=== PATIENT | female | born 1995 | race Caucasian/White ===

== ENCOUNTER 2018-03-23 16:57 | Inpatient (IN) | payer OTHER ==
[~2018-03-23] VITALS: Ht 165.1 cm; Wt 71.7 kg
[2018-03-23 21:30] VITALS: BP 124/79
--- NOTE | 2018-03-23 21:30 | NUR ---
LUIS RN NOTES RECEIVED PT'S REPORT FROM AM NURSE. RECEIVED PT FROM [facility] AT 2110. PT IS A/OX4, NO SOB, NO ANY DISTRESS NOTED AND AFEBRILE AT THIS TIME. PT HAS MOUTH BLISTERS AND COMPLAINS OF PAIN 7/10 AT THIS TIME. DURING SHIFT REPORT I WAS INDORSE THAT 1 UNIT OF BLOOD TRANSFUSION, 1 UNIT OF PLATELET,NEUPOGEN WAS GIVEN AT [facility]. I WAS INDORSED THAT 40MEQ POTASSIUM AND 2gr Mag ALSO WAS REPLACED AT [facility] . PT. PLACED ON REVERSE ISOLATION. ALL SAFETY MEASURES ARE IMPLEMENTED, BED IN LOW, LOCKED POSITION, CALL LIGHT IN REACH. WILL CONT. TO MONITOR.
[2018-03-23] MEDS ORDERED: ACETAMINOPHEN 650 MG/20.3 ML UDC NG PRN (23:00)
[2018-03-23] MEDS ORDERED: CEFEPIME 1 GM in IV D5W 50 ML IV SCH (23:00)
[2018-03-23] MEDS ORDERED: VANCOMYCIN 1 GM in IV D5W 250 ML IV SCH (23:00)
[2018-03-23] MEDS ORDERED: CEFEPIME 1 GM VIAL ONE (23:30)
[2018-03-23] MEDS ORDERED: VANCOMYCIN 1 GM VIAL ONE (23:31)
[2018-03-24] MEDS: diphenhydrAMINE HCL 50 MG/ML VIAL IV PRN (00:25)
[2018-03-24] MEDS: IV 1/2NS 1000 ML 1,000 ML IV PRN ×2 (00:55→16:54)
[2018-03-24] MEDS ORDERED: ONDANSETRON HCL/PF 4 MG/2 ML VIAL IVP PRN (01:00)
[2018-03-24] MEDS ORDERED: MAGNESIUM HYDROXIDE 30 ML UDC PO PRN (01:00)
[2018-03-24] MEDS: MORPHINE SULFATE INJ 2 MG/ML DISP.SYRIN IV PRN (01:25)
[2018-03-24 04:00] VITALS: BP 143/78
[2018-03-24 07:06] LABS: ALBUMIN 3.1 g/dL (3.4-5.0); CALCIUM, SERUM 8.7 mg/dL (8.5-10.1); CREATININE 0.6 mg/dL (0.6-1.3); MAGNESIUM 1.6 mg/dL (1.8-2.4); PHOSPHORUS 2.3 mg/dL (2.5-4.9); POTASSIUM 3.6 mmol/L (3.5-5.1); TOTAL PROTEIN, SERUM 7.5 g/dL (6.4-8.2)
--- NOTE | 2018-03-24 07:40 | NUR ---
MS RN NOTES: RECEIVED PT ON BED ASLEEP, WITH NO APPARENT DISTRESS NOTED. NO COMPLAINTS OF PAIN OR DISCOMFORT AT THIS TIME. NO SOB. IV ON RIGHT AC INTACT AND PATENT. REVERSE ISOLATION OBSERVED AND MAINTAINED. SAFETY AND FALL PRECAUTIONS IMPLEMENTED. CALL LIGHT WITHIN REACH. WILL CONTINUE TO MONITOR PT.
[2018-03-24] MEDS: PANTOPRAZOLE 40 MG TABLET.DR PO SCH (07:58)
[2018-03-24 08:00] VITALS: BP 129/78
[2018-03-24] MEDS: VANCOMYCIN 1 GM in IV D5W 250 ML IV SCH ×2 (09:29→16:50)
[2018-03-24] MEDS ORDERED: CEFEPIME 2 GM in IV D5W 100 ML IV SCH (10:00)
[2018-03-24 10:20] LABS: EOSINOPHILS % (AUTO) 0.2 % (0.0-6.0); HEMATOCRIT 24 % (33-45); HEMOGLOBIN 8.5 g/dL (11.5-14.8); LYMPHOCYTES # (AUTO) 0.8 /CMM (0.8-4.8); LYMPHOCYTES % (AUTO) 94.5 % (20.0-44.0); MEAN CORPUSCULAR HEMOGLOBIN 31 PG (26.0-33.0); MEAN CORPUSCULAR HGB CONC 35 g/dl (31.0-36.0); MEAN CORPUSCULAR VOLUME 88 fL (82-100); MONOCYTES % (AUTO) 2.2 % (2.0-12.0); NEUTROPHILS % (AUTO) 2.1 % (43.0-81.0); RDW COEFFICIENT OF VARIATION 14.3 (11.5-15.0); RED BLOOD CELL COUNT(AUTO) 2.74 MIL/uL (4.0-5.2)
[2018-03-24] MEDS ORDERED: MAGNESIUM OXIDE 400 MG TABLET PO ONE (10:30)
[2018-03-24] MEDS: CEFEPIME 2 GM in IV D5W 100 ML IV SCH ×3 (10:39→20:30)
[2018-03-24] MEDS: ACETAMINOPHEN 325 MG TABLET PO PRN (10:46)
[2018-03-24 11:03] LABS: PLATELET COUNT (AUTO) 23 /CMM (150-450); WHITE BLOOD COUNT (AUTO) 0.8 K/uL (4.3-11.0)
[2018-03-24 11:05] LABS: LYMPHOCYTES % (MANUAL) 92 % (16-48); MONOCYTES % (MANUAL) 4 % (0-11.0); NEUTROPHILS % (MANUAL) 4 (42-76)
--- NOTE | 2018-03-24 11:08 | NUR ---
MS RN NOTES: RECEIVED A CALL FROM LAB REGARDING PATIENT'S WBC 0.[id number] GUADALUPE NOTIFIED, STILL AWAITING FOR NEW ORDERS. WILL CONTINUE TO MONITOR PT.
[2018-03-24] MEDS ORDERED: ONDA4TAB5 PO (11:32)
[2018-03-24] MEDS ORDERED: NEUTRA PHOS 1 POWD.PACKET PO ONE (13:00)
--- NOTE | 2018-03-24 14:00 | NUR ---
MS RN NOTES: NO ACUTE DISTRESS NOTED. NO SOB. DENIES PAIN. NO NEW ORDERS AT THIS TIME. FAMILY AT BEDSIDE. ALL DUE MEDS GIVEN ORDERED AND WELL TOLERATED. WILL CONTINUE TO MONITOR PT.
[2018-03-24] MEDS ORDERED: MENTHOL/CETYLPYRD (CEPACOL) 1 LOZ LOZENGE PO PRN (14:30)
[2018-03-24] MEDS: LIDOCAINE VISCOUS 2% UD 15 ML UDC MM SCH ×2 (15:02→20:30)
[2018-03-24] MEDS: NYSTATIN (PYXIS) 500,000 UNIT/5 ML ORAL.SUSP PO SCH ×2 (15:02→20:30)
[2018-03-24] MEDS ORDERED: FEE PK DOSING 1 MIN EA MC ONE (15:04)
[2018-03-24 16:00] VITALS: BP 113/73
--- NOTE | 2018-03-24 18:30 | NUR ---
MS RN NOTES: PATIENT ON BED ALERT AND AWAKE. ABLE TO MAKE NEEDS KNOWN. NO ACUTE DISTRESS NOTED. NO COMPLAINTS OF PAIN OR DISCOMFORT AT THIS TIME. BREATHING EVEN AND UNLABORED WITH NORMAL RESPIRATIONS. IV ON RFA INTACT AND PATENT WITH IVF RUNNING 1/2 NS @ 70ML/HR, INFUSING WELL. CALL LIGHT PLACED WITHIN REACH. SAFETY AND FALL PRECAUTIONS OBSERVED AND MAINTAINED. WILL ENDORSE TO GROUP SOCIAL WORKER FOR CONTINUITY OF CARE.
--- NOTE | 2018-03-24 19:20 | NUR ---
RN M/S NOTE RECEIVED PATIENT AOX3, SPEECH CLEAR, ON NEUTROPENIC PRECAUTIONS, FAMILY AT BEDSIDE, DENIES ANY PAIN, NO VOICED CONCERNS, RAC #18G WITH 1/2NS AT 70 ML/HR, R CHEST PERMA CATH, PATENT, FLUSHING WELL, SITE CDI, SAFETY MAINTAINED AT ALL TIMES, BED IN LOW LOCKED POSITION, CALL LIGHT WITHIN REACH, WILL CONTINUE TO MONITOR FOR ANY CHANGES.
[2018-03-24 20:00] VITALS: BP 143/80
[2018-03-25] MEDS: diphenhydrAMINE HCL 50 MG/ML VIAL IV PRN (00:10)
[2018-03-25] MEDS: MORPHINE SULFATE INJ 2 MG/ML DISP.SYRIN IV PRN (01:28)
[2018-03-25] MEDS: VANCOMYCIN 1 GM in IV D5W 250 ML IV SCH ×3 (01:35→17:44)
[2018-03-25 04:00] VITALS: BP 130/77
[2018-03-25] MEDS: CEFEPIME 2 GM in IV D5W 100 ML IV SCH ×3 (05:04→21:20)
[2018-03-25] MEDS: LIDOCAINE VISCOUS 2% UD 15 ML UDC MM SCH ×3 (05:05→21:20)
[2018-03-25] MEDS: NYSTATIN (PYXIS) 500,000 UNIT/5 ML ORAL.SUSP PO SCH ×3 (05:05→21:20)
[2018-03-25 06:25] LABS: CALCIUM, SERUM 9.2 mg/dL (8.5-10.1); CREATININE 0.6 mg/dL (0.6-1.3); PHOSPHORUS 2.7 mg/dL (2.5-4.9)
[2018-03-25 06:27] LABS: INR 1.02 (0.87-1.13)
[2018-03-25 06:28] LABS: D-DIMER 2.45 mg/L(FEU (0.17-0.50)
[2018-03-25 06:38] LABS: THYROID STIMULATING HORMONE 3.155 uIU/mL (0.358-3.74)
--- NOTE | 2018-03-25 07:20 | NUR ---
MS RN OPENING NOTE RECEIVED PATIENT AOX3, SPEECH CLEAR, ON NEUTROPENIC PRECAUTIONS, FAMILY AT BEDSIDE, DENIES ANY PAIN, RFA #18G WITH 1/2NS AT 70 ML/HR, R CHEST PERMA CATH. SAFETY MAINTAINED BED IN LOW LOCKED POSITION,SRX3 CALL LIGHT WITHIN REACH, WILL CONTINUE TO MONITOR FOR ANY CHANGES.
[2018-03-25 08:00] VITALS: BP_SYST 129; BP_SYST 147; BP_DIAS 77; BP_DIAS 79
[2018-03-25] MEDS: FLUCONAZOLE (100 MG) 100 MG TABLET PO SCH (08:13)
[2018-03-25] MEDS: PANTOPRAZOLE 40 MG TABLET.DR PO SCH (08:13)
--- NOTE | 2018-03-25 10:30 | NUR ---
RN NOTES GOT CALL FROM LAB FOR CRITICAL RESULT FOR PLATELET COUNT.SPOKE TO NICK. MADE AWARE.
[2018-03-25] MEDS ORDERED: POTASSIUM CHLORIDE 20 MEQ TAB.PRT.SR PO SCH (12:30)
[2018-03-25] MEDS: POTASSIUM CHLORIDE 20 MEQ TAB.PRT.SR PO SCH ×3 (12:36→15:07)
[2018-03-25 15:04] LABS: BASOPHILS % (AUTO) 0.3 % (0.0-2.0); HEMATOCRIT 25 % (33-45); HEMOGLOBIN 8.8 g/dL (11.5-14.8); LYMPHOCYTES # (AUTO) 1.1 /CMM (0.8-4.8); MEAN CORPUSCULAR HEMOGLOBIN 31 PG (26.0-33.0); MEAN CORPUSCULAR HGB CONC 36 g/dl (31.0-36.0); MEAN CORPUSCULAR VOLUME 88 fL (82-100); MONOCYTES % (AUTO) 3.5 % (2.0-12.0); NEUTROPHILS # (AUTO) 0.1 /CMM (1.8-8.9); NEUTROPHILS % (AUTO) 9.2 % (43.0-81.0); RDW COEFFICIENT OF VARIATION 14.4 (11.5-15.0); RED BLOOD CELL COUNT(AUTO) 2.81 MIL/uL (4.0-5.2)
[2018-03-25 15:12] LABS: PLATELET COUNT (AUTO) 16 /CMM (150-450); WHITE BLOOD COUNT (AUTO) 1.2 K/uL (4.3-11.0)
[2018-03-25 16:00] VITALS: BP 125/78
[2018-03-25 16:05] LABS: LYMPHOCYTES % (MANUAL) 88 % (16-48); MONOCYTES % (MANUAL) 1 % (0-11.0); NEUTROPHILS % (MANUAL) 11 (42-76)
[2018-03-25] MEDS: IV 1/2NS 1000 ML 1,000 ML IV PRN (17:44)
--- NOTE | 2018-03-25 19:28 | NUR ---
MS RN SHIFT END NOTE PATIENT AOX3, SPEECH CLEAR, ON NEUTROPENIC PRECAUTIONS, FAMILY AT BEDSIDE, DENIES ANY PAIN, RFA #18G WITH 1/2NS AT 70 ML/HR, R CHEST PERMA CATH. MADE AWARE ABOUT ALL THE ABNORMAL LABS .SHE SAID ITS BECAUSE OF THE POST CHEMO.SAFETY MAINTAINED BED IN LOW LOCKED POSITION,SRX3 CALL LIGHT WITHIN REACH.ENDORSED TO PM NURSE FOR ALFREDITO.
[2018-03-25 20:00] VITALS: BP_SYST 140; BP_SYST 141; BP_DIAS 73; BP_DIAS 75
[2018-03-26] VITALS (9 sets, daily range): BP systolic 105–136; BP diastolic 58–81
[2018-03-26] MEDS: VANCOMYCIN 1 GM in IV D5W 250 ML IV SCH ×3 (00:13→17:22)
[2018-03-26] MEDS: diphenhydrAMINE HCL 50 MG/ML VIAL IV PRN (00:26)
[2018-03-26] MEDS: MORPHINE SULFATE INJ 2 MG/ML DISP.SYRIN IV PRN (00:26)
[2018-03-26] MEDS: CEFEPIME 2 GM in IV D5W 100 ML IV SCH ×3 (05:19→21:44)
[2018-03-26] MEDS: NYSTATIN (PYXIS) 500,000 UNIT/5 ML ORAL.SUSP PO SCH ×3 (05:19→21:44)
[2018-03-26] MEDS: LIDOCAINE VISCOUS 2% UD 15 ML UDC MM SCH ×3 (05:19→21:44)
[2018-03-26 07:36] LABS: BASOPHILS % (AUTO) 0.7 % (0.0-2.0); EOSINOPHILS % (AUTO) 0.7 % (0.0-6.0); HEMATOCRIT 22 % (33-45); HEMOGLOBIN 7.9 g/dL (11.5-14.8); LYMPHOCYTES # (AUTO) 0.9 /CMM (0.8-4.8); LYMPHOCYTES % (AUTO) 74.6 % (20.0-44.0); MEAN CORPUSCULAR HEMOGLOBIN 31 PG (26.0-33.0); MEAN CORPUSCULAR HGB CONC 36 g/dl (31.0-36.0); MEAN CORPUSCULAR VOLUME 87 fL (82-100); MONOCYTES # (AUTO) 0.1 /CMM (0.1-1.30); MONOCYTES % (AUTO) 6.8 % (2.0-12.0); NEUTROPHILS # (AUTO) 0.2 /CMM (1.8-8.9); NEUTROPHILS % (AUTO) 17.2 % (43.0-81.0); RDW COEFFICIENT OF VARIATION 13.9 (11.5-15.0); RED BLOOD CELL COUNT(AUTO) 2.53 MIL/uL (4.0-5.2)
--- NOTE | 2018-03-26 07:41 | NUR ---
RN NOTE RECEIVED PATIENT ASLEEP IN BED, ALERT AND ORIENTED X3, SHE IS ABLE TO MAKE THINGS KNOWN AND VERBALIZE NEEDS. BREATHING EVEN AND UNLABORED WITH NO DISTRESS NOTED. ON NEUTROPENIC PRECAUTIONS, FAMILY AT BEDSIDE, DENIES ANY PAIN AT THIS TIME. RIGHT FA IV SITE INTACT AND PATENT WITH ONGOING FLUIDS AT 70 ML/HR, RIGHT CHEST PERMA CATH INTACT. ALL SAFETY MEASURES DONE, BED LOW AND LOCKED POSITION. PLACED CALL LIGHT WITHIN REACH. WILL CONTINUE TO MONITOR.
[2018-03-26 08:03] LABS: WHITE BLOOD COUNT (AUTO) 1.2 K/uL (4.3-11.0)
[2018-03-26 08:04] LABS: PLATELET COUNT (AUTO) 7 /CMM (150-450)
[2018-03-26] MEDS: PANTOPRAZOLE 40 MG TABLET.DR PO SCH (08:08)
[2018-03-26 08:14] LABS: CALCIUM, SERUM 9.2 mg/dL (8.5-10.1); CREATININE 0.6 mg/dL (0.6-1.3); MAGNESIUM 1.4 mg/dL (1.8-2.4); PHOSPHORUS 2.5 mg/dL (2.5-4.9); POTASSIUM 3.4 mmol/L (3.5-5.1)
[2018-03-26] MEDS: FLUCONAZOLE (100 MG) 100 MG TABLET PO SCH (08:39)
[2018-03-26] MEDS ORDERED: MAGNESIUM OXIDE 400 MG TABLET PO ONE (10:00)
[2018-03-26] MEDS ORDERED: POTASSIUM CHLORIDE 20 MEQ TAB.PRT.SR PO SCH (10:00)
[2018-03-26 10:26] LABS: LYMPHOCYTES % (MANUAL) 76 % (16-48); MONOCYTES % (MANUAL) 4 % (0-11.0); NEUTROPHILS % (MANUAL) 20 (42-76)
[2018-03-26] MEDS: Magnesium 1GM/D5W 100ML PREMIX 100 ML IV SCH ×3 (13:02→15:15)
[2018-03-26] MEDS: IV 1/2NS 1000 ML 1,000 ML IV PRN (17:23)
--- NOTE | 2018-03-26 18:00 | NUR ---
RN NOTE SEEN BY DR VAZQUEZ, NEW ORDERS TO TRANSFUSE PLATELETS TO PATIENT. WAITING ON LAB FOR TYPE AND SCREEN ON PATIENT. BLOOD NOT AVAILABLE YET WILL FOLLOW UP
--- NOTE | 2018-03-26 19:40 | NUR ---
RN NOTE PATIENT REMAINED STABLE THROUGHOUT SHIFT. NO ACUTE CHANGES OR DISTRESS NOTED. WILL ENDORSE TO NEXT SHIFT TO FOLLOW UP ON TRANSFUSING PATIENT. CONSENT SIGNED BY PATIENT.
--- NOTE | 2018-03-26 20:00 | NUR ---
RN NOTES RECEIVED PATIENT AWAKE IN BED WITH FAMILY AT BEDSIDE. ALERT AND ORIENTED, VERBALLY ABLE TO COMMUNICATE NEEDS. IN NO APPARENT DISTRESS, BREATHING EVEN AND UNLABORED. ROOM AIR WELL TOLERATED. NO COMPLAINT OF PAIN OF THIS TIME. WILL CONTINUE TO MONITOR.
[2018-03-27] MEDS: diphenhydrAMINE HCL 50 MG/ML VIAL IV PRN (01:01)
[2018-03-27] MEDS: MORPHINE SULFATE INJ 2 MG/ML DISP.SYRIN IV PRN (01:02)
[2018-03-27] MEDS: VANCOMYCIN 1 GM in IV D5W 250 ML IV SCH ×3 (01:03→17:08)
[2018-03-27] MEDS: CEFEPIME 2 GM in IV D5W 100 ML IV SCH ×3 (04:30→20:40)
[2018-03-27] MEDS: LIDOCAINE VISCOUS 2% UD 15 ML UDC MM SCH ×3 (05:00→20:40)
[2018-03-27] MEDS: NYSTATIN (PYXIS) 500,000 UNIT/5 ML ORAL.SUSP PO SCH ×3 (05:00→20:40)
[2018-03-27 06:01] VITALS: BP 135/77
--- NOTE | 2018-03-27 06:24 | NUR ---
RN CLOSING NOTES RESTING COMFORTABLY IN BED WITH DISTRESS NOTED. ROOM AIR WELL TOLERATED. BREATHING EVEN AND UNLABORED. REFUSED 0500 MEDICATION (LIDOCAINE AND NYSTATION), PATIENT SAID IT IS TOO EARLY FOR HER. S/P BLOOD PRODUCT TRANSFUSION, 1 BAG, NO ADVERSE EFFECT NOTED. PATIENT TOLERATED TRANSFUSION WELL. WITH COMPLAINT OF PAIN AT AROUND 2AM, MORPHINE ADMINISTERED WITH RELIEF. VITAL SIGNS WNL. KEPT CLEAN AND DRY. WILL ENDORSE TO AM SHIFT FOR CONTINUITY OF CARE.
[2018-03-27 08:00] VITALS: BP 146/84
[2018-03-27] MEDS: FLUCONAZOLE (100 MG) 100 MG TABLET PO SCH (08:57)
[2018-03-27] MEDS: PANTOPRAZOLE 40 MG TABLET.DR PO SCH (08:57)
[2018-03-27 10:16] LABS: CALCIUM, SERUM 8.8 mg/dL (8.5-10.1); CREATININE 0.5 mg/dL (0.6-1.3); POTASSIUM 3.3 mmol/L (3.5-5.1)
[2018-03-27 11:36] LABS: HEMATOCRIT 22 % (33-45); HEMOGLOBIN 7.8 g/dL (11.5-14.8); LYMPHOCYTES % (AUTO) 62.4 % (20.0-44.0); MEAN CORPUSCULAR HEMOGLOBIN 31 PG (26.0-33.0); MEAN CORPUSCULAR HGB CONC 36 g/dl (31.0-36.0); MEAN CORPUSCULAR VOLUME 86 fL (82-100); MONOCYTES % (AUTO) 6.2 % (2.0-12.0); NEUTROPHILS % (AUTO) 31.1 % (43.0-81.0); PLATELET COUNT (AUTO) 28 /CMM (150-450); RDW COEFFICIENT OF VARIATION 14.7 (11.5-15.0); RED BLOOD CELL COUNT(AUTO) 2.52 MIL/uL (4.0-5.2); WHITE BLOOD COUNT (AUTO) 1.4 K/uL (4.3-11.0)
[2018-03-27 11:37] LABS: BASOPHILS % (AUTO) 0.1 % (0.0-2.0); EOSINOPHILS % (AUTO) 0.2 % (0.0-6.0)
[2018-03-27 12:00] LABS: NEUTROPHILS % (MANUAL) 30 (42-76)
[2018-03-27 12:01] LABS: LYMPHOCYTES % (MANUAL) 64 % (16-48); MONOCYTES % (MANUAL) 6 % (0-11.0)
[2018-03-27] MEDS: IV 1/2NS 1000 ML 1,000 ML IV PRN (15:01)
[2018-03-27 16:00] VITALS: BP 124/75
--- NOTE | 2018-03-27 18:53 | NUR ---
RN NOTE: PATIENT REMAINS ALERT AWAKE ORIENTED. DENIES PAIN & DISCOMFORT. VITAL SIGNS WNL. SAFETY MEASURES OBSERVED. CONTINUE TO MONITOR LABS. IV FLUIDS RUNNING WELL ORDERED. NO FALL/INJURY NOTED. CALL LIGHT WITHIN REACH. WILL ENDORSE TO PM SHIFT FOR CONTINUITY OF CARE.
[2018-03-27 20:00] VITALS: BP 133/72
[2018-03-28] MEDS: diphenhydrAMINE HCL 50 MG/ML VIAL IV PRN (00:10)
[2018-03-28] MEDS: VANCOMYCIN 1 GM in IV D5W 250 ML IV SCH ×3 (00:10→17:54)
[2018-03-28] MEDS: MORPHINE SULFATE INJ 2 MG/ML DISP.SYRIN IV PRN (00:11)
[2018-03-28 04:00] VITALS: BP 108/62
[2018-03-28] MEDS: CEFEPIME 2 GM in IV D5W 100 ML IV SCH ×3 (04:32→20:08)
[2018-03-28] MEDS: LIDOCAINE VISCOUS 2% UD 15 ML UDC MM SCH ×3 (04:33→20:08)
[2018-03-28] MEDS: NYSTATIN (PYXIS) 500,000 UNIT/5 ML ORAL.SUSP PO SCH ×3 (04:33→20:08)
--- NOTE | 2018-03-28 06:34 | NUR ---
MS RN NOTE PT REMAINED STABLE DURING SHIFT. NO ACUTE DISTRESS NOTED. MOTHER AT BEDSIDE. ALL NEEDS ATTENDED TO PROMPTLY. CALL LIGHT WITHIN REACH. NEUTROPENIC PRECAUTIONS OBSERVED. WILL ENDORSE TO NEXT SHIFT FOR CONTINUITY OF CARE.
[2018-03-28 08:00] VITALS: BP 119/66
[2018-03-28 08:01] LABS: EOSINOPHILS % (AUTO) 0.2 % (0.0-6.0); HEMATOCRIT 23 % (33-45); HEMOGLOBIN 8.3 g/dL (11.5-14.8); LYMPHOCYTES # (AUTO) 1.1 /CMM (0.8-4.8); LYMPHOCYTES % (AUTO) 46.1 % (20.0-44.0); MEAN CORPUSCULAR HEMOGLOBIN 31 PG (26.0-33.0); MEAN CORPUSCULAR HGB CONC 36 g/dl (31.0-36.0); MEAN CORPUSCULAR VOLUME 87 fL (82-100); MONOCYTES # (AUTO) 0.2 /CMM (0.1-1.30); NEUTROPHILS # (AUTO) 0.9 /CMM (1.8-8.9); NEUTROPHILS % (AUTO) 41.7 % (43.0-81.0); RDW COEFFICIENT OF VARIATION 13.7 (11.5-15.0); RED BLOOD CELL COUNT(AUTO) 2.66 MIL/uL (4.0-5.2); WHITE BLOOD COUNT (AUTO) 2.2 K/uL (4.3-11.0)
[2018-03-28 08:09] LABS: PLATELET COUNT (AUTO) 20 /CMM (150-450)
[2018-03-28 08:10] LABS: CALCIUM, SERUM 9.4 mg/dL (8.5-10.1); CREATININE 0.6 mg/dL (0.6-1.3); MAGNESIUM 1.3 mg/dL (1.8-2.4); PHOSPHORUS 3.6 mg/dL (2.5-4.9); POTASSIUM 3.7 mmol/L (3.5-5.1)
[2018-03-28] MEDS: PANTOPRAZOLE 40 MG TABLET.DR PO SCH (08:46)
[2018-03-28] MEDS: FLUCONAZOLE (100 MG) 100 MG TABLET PO SCH (08:46)
[2018-03-28] MEDS: Magnesium 1GM/D5W 100ML PREMIX 100 ML IV SCH ×4 (11:04→16:39)
[2018-03-28 11:54] LABS: BAND % (MANUAL) 4 % (0.0-5.0); LYMPHOCYTES % (MANUAL) 30 % (16-48); MONOCYTES % (MANUAL) 1 % (0-11.0); NEUTROPHILS % (MANUAL) 65 (42-76)
[2018-03-28] MEDS ORDERED: Magnesium 1GM/D5W 100ML PREMIX 100 ML IV ONE (14:00)
[2018-03-28 16:00] VITALS: BP 112/69
--- NOTE | 2018-03-28 19:22 | NUR ---
MS RN SHIFT END NOTE PATIENT AXOX4 .DENIES ANY PAIN, INSERTED IV ON RW.RW #22G WITH 1/2NS AT 70 ML/HR, R CHEST PERMA CATH.SEEN BY DIETETIC TECH ERICH WITH NO NEW ORDERS. SAFETY MAINTAINED BED IN LOW LOCKED POSITION,SRX3 CALL LIGHT WITHIN REACH, ENDORSED TO PM NURSE FOR ALFREDITO.
[2018-03-28 20:00] VITALS: BP 112/76
[2018-03-28] MEDS: IV 1/2NS 1000 ML 1,000 ML IV PRN (20:08)
[2018-03-29] MEDS: VANCOMYCIN 1 GM in IV D5W 250 ML IV SCH ×3 (00:04→16:07)
[2018-03-29] MEDS: ACETAMINOPHEN 325 MG TABLET PO PRN (00:09)
[2018-03-29] MEDS: diphenhydrAMINE HCL 50 MG/ML VIAL IV PRN ×2 (00:09→23:19)
[2018-03-29] MEDS: MORPHINE SULFATE INJ 2 MG/ML DISP.SYRIN IV PRN ×2 (00:10→23:19)
[2018-03-29 04:00] VITALS: BP 105/64
[2018-03-29] MEDS: CEFEPIME 2 GM in IV D5W 100 ML IV SCH ×3 (04:46→21:46)
[2018-03-29] MEDS: NYSTATIN (PYXIS) 500,000 UNIT/5 ML ORAL.SUSP PO SCH ×3 (04:46→21:37)
[2018-03-29] MEDS: LIDOCAINE VISCOUS 2% UD 15 ML UDC MM SCH ×3 (04:46→21:37)
[2018-03-29 08:00] VITALS: BP 127/70
[2018-03-29] MEDS: PANTOPRAZOLE 40 MG TABLET.DR PO SCH (08:39)
[2018-03-29] MEDS: FLUCONAZOLE (100 MG) 100 MG TABLET PO SCH (08:41)
[2018-03-29 09:08] LABS: BASOPHILS % (AUTO) 0.6 % (0.0-2.0); EOSINOPHILS % (AUTO) 0.1 % (0.0-6.0); HEMATOCRIT 22 % (33-45); HEMOGLOBIN 7.9 g/dL (11.5-14.8); LYMPHOCYTES # (AUTO) 0.9 /CMM (0.8-4.8); LYMPHOCYTES % (AUTO) 43.1 % (20.0-44.0); MEAN CORPUSCULAR HEMOGLOBIN 31 PG (26.0-33.0); MEAN CORPUSCULAR HGB CONC 35 g/dl (31.0-36.0); MEAN CORPUSCULAR VOLUME 86 fL (82-100); MONOCYTES # (AUTO) 0.2 /CMM (0.1-1.30); MONOCYTES % (AUTO) 10.4 % (2.0-12.0); NEUTROPHILS % (AUTO) 45.8 % (43.0-81.0); RDW COEFFICIENT OF VARIATION 13.8 (11.5-15.0); RED BLOOD CELL COUNT(AUTO) 2.59 MIL/uL (4.0-5.2); WHITE BLOOD COUNT (AUTO) 2.1 K/uL (4.3-11.0)
[2018-03-29 09:21] LABS: PLATELET COUNT (AUTO) 14 /CMM (150-450)
[2018-03-29 09:30] LABS: CALCIUM, SERUM 9.2 mg/dL (8.5-10.1); CREATININE 0.7 mg/dL (0.6-1.3); POTASSIUM 3.7 mmol/L (3.5-5.1)
[2018-03-29 10:55] LABS: BAND % (MANUAL) 2 % (0.0-5.0); EOSINOPHILS % (MANUAL) 1 % (0-4); LYMPHOCYTES % (MANUAL) 59 % (16-48); MONOCYTES % (MANUAL) 2 % (0-11.0); NEUTROPHILS % (MANUAL) 36 (42-76)
[2018-03-29] MEDS: Magnesium 1GM/D5W 100ML PREMIX 100 ML IV SCH ×2 (11:27→12:59)
[2018-03-29 16:00] VITALS: BP 107/59
[2018-03-29 20:00] VITALS: BP 111/71
[2018-03-29] MEDS: IV 1/2NS 1000 ML 1,000 ML IV PRN (23:25)
[2018-03-30] VITALS (15 sets, daily range): BP systolic 101–130; BP diastolic 47–77
[2018-03-30] MEDS: VANCOMYCIN 1 GM in IV D5W 250 ML IV SCH ×3 (01:25→17:11)
[2018-03-30] MEDS: LIDOCAINE VISCOUS 2% UD 15 ML UDC MM SCH ×3 (05:03→20:32)
[2018-03-30] MEDS: NYSTATIN (PYXIS) 500,000 UNIT/5 ML ORAL.SUSP PO SCH ×3 (05:04→20:32)
[2018-03-30] MEDS: CEFEPIME 2 GM in IV D5W 100 ML IV SCH ×3 (05:07→20:32)
--- NOTE | 2018-03-30 07:30 | NUR ---
RN M/S INITIAL NOTES: RECEIVED PT IN BED, AWAKE. A&O X4. ON ROOM AIR SATURATING 100%. IV TO R HAND IN PLACE, CONNECTED TO IV FLUIDS ORDERED. REVERSE ISOLATION PRECAUTIONS IN PLACE. PT C/O MILD HEADACHE BUT DENYING PAIN MEDS AT THIS TIME. WILL CONTINUE TO MONITOR. BED IN LOW LOCKED POSITION, CALL LIGHT WITHIN REACH. PLAN OF CARE DISCUSSED WITH PT. WILL CONTINUE TO MONITOR.
[2018-03-30] MEDS: PANTOPRAZOLE 40 MG TABLET.DR PO SCH (07:41)
[2018-03-30] MEDS: ACETAMINOPHEN 325 MG TABLET PO PRN ×3 (08:16→21:18)
[2018-03-30] MEDS: FLUCONAZOLE (100 MG) 100 MG TABLET PO SCH (08:16)
[2018-03-30 09:04] LABS: CALCIUM, SERUM 8.9 mg/dL (8.5-10.1); CREATININE 0.7 mg/dL (0.6-1.3); MAGNESIUM 1.6 mg/dL (1.8-2.4); POTASSIUM 3.8 mmol/L (3.5-5.1)
[2018-03-30 09:37] LABS: EOSINOPHILS % (AUTO) 0.4 % (0.0-6.0); HEMATOCRIT 21 % (33-45); HEMOGLOBIN 7.6 g/dL (11.5-14.8); LYMPHOCYTES # (AUTO) 0.7 /CMM (0.8-4.8); LYMPHOCYTES % (AUTO) 30.1 % (20.0-44.0); MEAN CORPUSCULAR HEMOGLOBIN 30 PG (26.0-33.0); MEAN CORPUSCULAR HGB CONC 36 g/dl (31.0-36.0); MEAN CORPUSCULAR VOLUME 85 fL (82-100); MONOCYTES # (AUTO) 0.2 /CMM (0.1-1.30); MONOCYTES % (AUTO) 8.1 % (2.0-12.0); NEUTROPHILS # (AUTO) 1.3 /CMM (1.8-8.9); NEUTROPHILS % (AUTO) 61.4 % (43.0-81.0); RDW COEFFICIENT OF VARIATION 13.6 (11.5-15.0); RED BLOOD CELL COUNT(AUTO) 2.51 MIL/uL (4.0-5.2); WHITE BLOOD COUNT (AUTO) 2.2 K/uL (4.3-11.0)
[2018-03-30 09:45] LABS: PLATELET COUNT (AUTO) 10 /CMM (150-450)
--- NOTE | 2018-03-30 09:49 | NUR ---
LAB CALLED TO REPORT PLATELET LEVEL OF 10. ERICH GEE ON UNIT AND MADE AWARE.
[2018-03-30] MEDS: MORPHINE SULFATE INJ 2 MG/ML DISP.SYRIN IV PRN (10:57)
[2018-03-30 12:15] LABS: BAND % (MANUAL) 5 % (0.0-5.0); LYMPHOCYTES % (MANUAL) 34 % (16-48); MONOCYTES % (MANUAL) 8 % (0-11.0); NEUTROPHILS % (MANUAL) 53 (42-76)
--- NOTE | 2018-03-30 14:15 | NUR ---
1 UNIT OF PRBC'S BEING TRANSFUSED SINCE 1315. PT NOTED WITH TEMPERATURE 99.4. PT REQUESTING TYLENOL. 650MG GIVEN PO. WILL CONTINUE TO MONITOR
--- NOTE | 2018-03-30 14:30 | NUR ---
PT TEMP 100.0. TYLENOL ALREADY GIVEN. ERICH GEE MADE AWARE. WILL CONTINUE TO MONITOR.
[2018-03-30] MEDS: diphenhydrAMINE HCL 50 MG/ML VIAL IV PRN (18:15)
--- NOTE | 2018-03-30 18:45 | NUR ---
RN M/S END NOTES: PT REMAINS IN BED, AWAKE, A&O X4. DENIES ANY PAIN OR DISCOMFORT AT THIS TIME. BED IN LOW LOCKED POSITION. CALL LIGHT WITHIN REACH. ON ROOM AIR SATURATING WELL. IV FLUIDS RUNNING ORDERED. WILL ENDORSE TO PM SHIFT FOR CONTINUITY OF CARE
--- NOTE | 2018-03-30 20:00 | NUR ---
RECEIVED PATIENT IN BED FAMILY AT THE BEDSIDE. PATIENT IS AAO X 4, ANXIOUS, NEEDING PLATELETS TRANSFUSIONS , VITAL SIGNS ARE STABLE BUT PATIENT HAS A LOW GRADE FEVER 99.0f
--- NOTE | 2018-03-30 20:30 | NUR ---
STARTED PLATELETS TRANSFUSION, CONTINUE TO MONITOR
[2018-03-30] MEDS: IV 1/2NS 1000 ML 1,000 ML IV PRN (20:38)
--- NOTE | 2018-03-30 21:15 | NUR ---
PLATELETS TRANSFUSION IS FINISHED , PATIENT HAS A FEVER 101.F - TYLENOL GIVEN AT THIS TIME CONTINUE TO MONITOR
--- NOTE | 2018-03-30 21:30 | NUR ---
SCHEDULED MEDS ARE GIVEN WELL ANTIBIOTIC, COOLING MEASURES STARTED- ICE PACKS GIVEN TO THE PATIENT. CONTINUE TO MONITOR
--- NOTE | 2018-03-30 23:00 | NUR ---
PATIENT C/O RASH TO BOTH ARMS, STILL HAS A FEVER 102F NOW. DR. SNYDER NOTIFIED POSSIBLE BLOOOD TRANSFUSION REACTION POSSIBLY FROM PR[facility]'S. BLOOD TRANSFUSION REACTION PROTOCOL STARTED. BC, UC AND THE REST OF THE BLOOD AND PLATELETS IS SEND TO THE BLOOD BANK
[2018-03-30] MEDS ORDERED: diphenhydrAMINE HCL 50 MG/ML VIAL IV ONE (23:30)
[2018-03-30] MEDS ORDERED: methylPREDNISolone SOD SUCC 125 MG/2ML VIAL IV ONE (23:30)
--- NOTE | 2018-03-31 | NUR ---
BENADRYL AND SOLU MEDROL IS GIVEN ORDERED
[2018-03-31] MEDS: MORPHINE SULFATE INJ 2 MG/ML DISP.SYRIN IV PRN ×2 (00:02→07:35)
[2018-03-31] MEDS: VANCOMYCIN 1 GM in IV D5W 250 ML IV SCH ×3 (00:03→17:01)
--- NOTE | 2018-03-31 00:13 | NUR ---
PATIENT C/O PAIN- MORPHINE 2MG IS GIVEN . CONTINUE TO MONITOR
[2018-03-31 02:12] LABS: ALBUMIN 3.3 g/dL (3.4-5.0); BILIRUBIN,DIRECT 0.2 mg/dL (0.0-0.2); BILIRUBIN,TOTAL 0.7 mg/dL (0.2-1.0); CALCIUM, SERUM 8.6 mg/dL (8.5-10.1); CREATININE 0.8 mg/dL (0.6-1.3); POTASSIUM 3.3 mmol/L (3.5-5.1); TOTAL PROTEIN, SERUM 7.3 g/dL (6.4-8.2)
[2018-03-31 02:17] LABS: APPEARANCE,URINE CLEAR (CLEAR); BILIRUBIN,URINE NEGATIVE (NEGATIVE); BLOOD, URINE NEGATIVE Ery/uL (NEGATIVE); COLOR,URINE YELLOW (YELLOW); KETONES,URINE NEGATIVE (NEGATIVE); LEUKOCYTE ESTERASE ,URINE NEGATIVE (NEGATIVE); NITRITE, URINE NEGATIVE (NEGATIVE); PROTEIN,URINE NEGATIVE (NEGATIVE); UGLUCOSE NEGATIVE (NEGATIVE); UROBILINOGEN,URINE 0.2 EU/dL (0.2)
[2018-03-31 04:00] VITALS: BP 113/65
[2018-03-31] MEDS: NYSTATIN (PYXIS) 500,000 UNIT/5 ML ORAL.SUSP PO SCH ×3 (04:44→21:11)
[2018-03-31] MEDS: LIDOCAINE VISCOUS 2% UD 15 ML UDC MM SCH ×3 (04:44→21:11)
[2018-03-31] MEDS: CEFEPIME 2 GM in IV D5W 100 ML IV SCH ×2 (04:44→13:06)
--- NOTE | 2018-03-31 07:30 | NUR ---
RN M/S INITIAL NOTES: RECEIVED PT IN BED, AWAKE. A&O X4. ON ROOM AIR SATURATING 97%. PT C/O ITCHING DUE TO RASH FROM TRANSFUSION REACTION. WILL GIVE BENADRYL PRN ORDERED. PT C/O GENERALIZED PAIN, WILL GIVE MORPHINE ORDERED WELL. IV FLUIDS CONNECTED TO R WRIST IV SITE. BED IN LOW LOCKED POSITION, CALL LIGHT WITHIN REACH. PLAN OF CARE DISCUSSED WITH PT AND FAMILY MEMBER AT BEDSIDE. WILL CONTINUE TO MONITOR.
[2018-03-31] MEDS: PANTOPRAZOLE 40 MG TABLET.DR PO SCH (07:35)
[2018-03-31] MEDS: diphenhydrAMINE HCL 50 MG/ML VIAL IV PRN ×2 (07:35→13:40)
[2018-03-31] MEDS: ACETAMINOPHEN 325 MG TABLET PO PRN ×3 (07:35→21:11)
[2018-03-31 08:00] VITALS: BP_SYST 130; BP_DIAS 76; BP_DIAS 80
[2018-03-31] MEDS: FLUCONAZOLE (100 MG) 100 MG TABLET PO SCH (08:56)
[2018-03-31] MEDS ORDERED: POTASSIUM CHLORIDE 20 MEQ TAB.PRT.SR PO SCH (09:30)
[2018-03-31 16:00] VITALS: BP 129/72
[2018-03-31] MEDS ORDERED: DEXAMETHASONE SOD PHOSPHATE 10 MG/ML VIAL IV ONE (16:00)
[2018-03-31 16:56] LABS: BASOPHILS # (AUTO) 0.1 /CMM (0.0-0.2); BASOPHILS % (AUTO) 3.5 % (0.0-2.0); EOSINOPHILS % (AUTO) 0.1 % (0.0-6.0); HEMATOCRIT 25 % (33-45); HEMOGLOBIN 8.6 g/dL (11.5-14.8); LYMPHOCYTES # (AUTO) 0.8 /CMM (0.8-4.8); LYMPHOCYTES % (AUTO) 24.3 % (20.0-44.0); MEAN CORPUSCULAR HEMOGLOBIN 30 PG (26.0-33.0); MEAN CORPUSCULAR HGB CONC 35 g/dl (31.0-36.0); MEAN CORPUSCULAR VOLUME 88 fL (82-100); MONOCYTES # (AUTO) 0.2 /CMM (0.1-1.30); NEUTROPHILS # (AUTO) 2.2 /CMM (1.8-8.9); NEUTROPHILS % (AUTO) 66.1 % (43.0-81.0); RDW COEFFICIENT OF VARIATION 14.1 (11.5-15.0); RED BLOOD CELL COUNT(AUTO) 2.85 MIL/uL (4.0-5.2); WHITE BLOOD COUNT (AUTO) 3.3 K/uL (4.3-11.0)
[2018-03-31 16:59] LABS: PLATELET COUNT (AUTO) 23 /CMM (150-450)
[2018-03-31] MEDS: IV 1/2NS 1000 ML 1,000 ML IV PRN (17:01)
[2018-03-31 17:12] LABS: BAND % (MANUAL) 12 % (0.0-5.0); LYMPHOCYTES % (MANUAL) 20 % (16-48); MONOCYTES % (MANUAL) 4 % (0-11.0); NEUTROPHILS % (MANUAL) 64 (42-76)
--- NOTE | 2018-03-31 18:45 | NUR ---
RN M/S END NOTES: PT IN BED AWAKE, A&O X4 WITH VISITORS AT BEDSIDE AT THIS TIME. DENIES ANY PAIN OR DISCOMFORT. PER ERICH GEE, IF PT HAS NO FEVER TONIGHT AND TOMORROW MORNING, WILL BE DISCHARGED TOMORROW. PT AWARE. NO FEVER NOTED THROUGHOUT THE SHIFT. IV TO RIGHT HAND PAINFUL AND SLIGHT SWELLING NOTED, ATTEMPTED TO RESTART IV WITHOUT SUCCESS, CHARGE NURSE AWARE TO ATTEMPT NEW INSERTION. BED IN LOW LOCKED POSITION, CALL LIGHT WITHIN REACH. WILL ENDORSE TO PM SHIFT FOR CONTINUITY OF CARE.
--- NOTE | 2018-03-31 19:00 | NUR ---
RN NOTES RECEIVED PATIENT IN BED RESTING COMFORTABLY WITH NO DISTRESS NOTED. NO COMPLAINT OF PAIN OR DISCOMFORT. ALERT AND ORIENTED, VERBALLY ABLE TO COMMUNICATE NEEDS. FAMILY AT BEDSIDE. BREATHING EVEN AND UNLABORED. AMBULATORY. KEPT CLEAN AND DRY. WILL CONTINUE TO MONITOR.
[2018-03-31 20:00] VITALS: BP 141/85
[2018-03-31] MEDS: MEROPENEM 500 MG in IV NS 0.9% 50 ML IV SCH (21:11)
[2018-04-01] MEDS: VANCOMYCIN 1 GM in IV D5W 250 ML IV SCH ×2 (01:00→09:00)
--- NOTE | 2018-04-01 03:43 | NUR ---
RN NOTES: SEVERAL ATTEMPTS WERE MADE TO INSERT IV LINE BY DIFFERENT RNs. CALLED MD SPOKE WITH DR SNYDER AND GOT ORDER TO INSERT IV LINE ON RIGHT FOOT. STILL, EVEN IN THE FOOT, ATTEMPTS TO INSERT IV LINE WERE UNSUCCESFUL. TRIED AGAIN ON UPPER EXTREMITIES, BUT TO NO AVAIL. PATIENT REFUSED TO INSERT ANOTHER LINE AGAIN. CALLED DR SNYDER AND RELAYED PATIENT'S REFUSAL, MD SAID TO WAIT TILL MORNING AND ENDORSE TO NEXT SHIFT. THERE WERE SEVERAL IV MEDICATIONS THAT WERE NOT ADMINISTERED. (VANCO 2 BAGS AND MEREM 2 BAGS).
[2018-04-01 04:00] VITALS: BP 141/85
[2018-04-01] MEDS: LIDOCAINE VISCOUS 2% UD 15 ML UDC MM SCH (05:00)
[2018-04-01] MEDS: NYSTATIN (PYXIS) 500,000 UNIT/5 ML ORAL.SUSP PO SCH (05:00)
[2018-04-01] MEDS: MEROPENEM 500 MG in IV NS 0.9% 50 ML IV SCH (05:00)
[2018-04-01 06:37] VITALS: BP 139/67
--- NOTE | 2018-04-01 07:15 | NUR ---
RN INITIAL NOTES RECEIVED PT IN BED, A/OX4, TOLERATING ROOM AIR WELL, NO SOB NOTED. NO C/O PAIN AT THIS TIME. AFEBRILE. NO SIGNS OF BLEEDING. NOTED GENERALIZED RASH. NO SIGNS OF BLEEDING NOTED. PER PM NURSE ENDORSEMENT, PT DOES NOT HAVE IV LINE, UNABLE TO RE-INSERT IV LINE, AWARE. WILL OFFER IV REINSERTION LATER. SAFETY MEASURES OBSERVED. REVERSE ISOLATION MAINTAINED. WILL CONT TO MONITOR
--- NOTE | 2018-04-01 07:25 | NUR ---
RN CLOSING NOTES IN BED RESTING COMFORTABLY. NO SIGNIFICANT CHANGE OF CONDITION. NO DISTRESS NOTED. NO COMPLAINT OF PAIN OR DISCOMFORT. ALERT AND ORIENTED. VITAL SIGNS WNL. UNABLE TO INSERT PIV LINE. MD AWARE. PATIENT WILL BE DISCHARGED TODAY. KEPT CLEAN AND DRY. WILL ENDORSE TO AM SHIFT FOR CONTINUITY OF CARE.
[2018-04-01] MEDS: PANTOPRAZOLE 40 MG TABLET.DR PO SCH (07:51)
[2018-04-01 08:00] VITALS: BP 134/77
[2018-04-01 08:20] LABS: BASOPHILS % (AUTO) 1.1 % (0.0-2.0); EOSINOPHILS % (AUTO) 0.1 % (0.0-6.0); HEMATOCRIT 27 % (33-45); HEMOGLOBIN 9.5 g/dL (11.5-14.8); LYMPHOCYTES # (AUTO) 1.2 /CMM (0.8-4.8); LYMPHOCYTES % (AUTO) 31.3 % (20.0-44.0); MEAN CORPUSCULAR HEMOGLOBIN 31 PG (26.0-33.0); MEAN CORPUSCULAR HGB CONC 35 g/dl (31.0-36.0); MEAN CORPUSCULAR VOLUME 88 fL (82-100); MONOCYTES # (AUTO) 0.3 /CMM (0.1-1.30); MONOCYTES % (AUTO) 7.4 % (2.0-12.0); NEUTROPHILS # (AUTO) 2.2 /CMM (1.8-8.9); NEUTROPHILS % (AUTO) 60.1 % (43.0-81.0); RDW COEFFICIENT OF VARIATION 14.3 (11.5-15.0); RED BLOOD CELL COUNT(AUTO) 3.12 MIL/uL (4.0-5.2); WHITE BLOOD COUNT (AUTO) 3.7 K/uL (4.3-11.0)
[2018-04-01] MEDS: FLUCONAZOLE (100 MG) 100 MG TABLET PO SCH (08:21)
[2018-04-01 08:24] LABS: PLATELET COUNT (AUTO) 21 /CMM (150-450)
[2018-04-01] MEDS: ACETAMINOPHEN 325 MG TABLET PO PRN (08:29)
--- NOTE | 2018-04-01 08:30 | NUR ---
RN NOTES OFFERED PT TO REINSERT A NEW IV LINE, EXPLAINED RISKS AND BENEFITS. OFFERED X3, PT STRONGLY REFUSED. MADE AWARE
[2018-04-01 09:21] LABS: CALCIUM, SERUM 9.6 mg/dL (8.5-10.1); POTASSIUM 4.3 mmol/L (3.5-5.1)
[2018-04-01 09:22] LABS: CREATININE 0.6 mg/dL (0.6-1.3)
[2018-04-01 09:51] LABS: BAND % (MANUAL) 3 % (0.0-5.0); EOSINOPHILS % (MANUAL) 1 % (0-4); LYMPHOCYTES % (MANUAL) 34 % (16-48); MONOCYTES % (MANUAL) 9 % (0-11.0); NEUTROPHILS % (MANUAL) 53 (42-76)
--- NOTE | 2018-04-01 10:40 | NUR ---
RN NOTES SEEN AND EXAMINED BY NONA JUNG, WITH ORDERS TO D/C PT. ALL CONCERNS WERE ANSWERED BY TECHNOLOGY ANALYST
--- NOTE | 2018-04-01 11:27 | NUR ---
RN D/C NOTES D/C PT IN STABLE CONDITION. NO ACUTE DISTRESS NOTED. NO SOB. NO C/O PAIN AT THIS TIME. D/C INSTRUCTIONS GIVEN TO PT AND COUSIN (CARLOS), VERBALIZED UNDERSTANDING. MASKS GIVEN TO PT FOR CONT NEUTROPENIC PRECAUTION. SAFETY MEASURES OBSERVED AT ALL TIMES. ALL NEEDS ANTICIPATED. D/C
== END 2018-04-01 11:37 | disposition home or self-care (01) | DRG 809 ==
LOC: MEDSG1 20:47
PROVIDERS: ADMIT Internal Medicine; ATTEND Internal Medicine
PROC: 30233R1 Transfusion of Nonautologous Platelets into Peripheral Vein, Percutaneous Approach (ICD-10-PCS; principal; 2018-03-26)
PROC: 30233N1 Transfusion of Nonautologous Red Blood Cells into Peripheral Vein, Percutaneous Approach (ICD-10-PCS; 2018-03-30)
DX: D70.1 Agranulocytosis secondary to cancer chemotherapy (principal); B37.0 Candidal stomatitis; E44.1 Mild protein-calorie malnutrition; C40.02 Malignant neoplasm of scapula and long bones of left upper limb; Z92.21 Personal history of antineoplastic chemotherapy; E83.42 Hypomagnesemia; T45.1X5A Adverse effect of antineoplastic and immunosuppressive drugs, initial encounter; E87.6 Hypokalemia; D64.81 Anemia due to antineoplastic chemotherapy; R50.81 Fever presenting with conditions classified elsewhere; D69.59 Other secondary thrombocytopenia; K21.9 Gastro-esophageal reflux disease without esophagitis; L50.0 Allergic urticaria; T45.8X5A Adverse effect of other primarily systemic and hematological agents, initial encounter; Y92.89 Other specified places as the place of occurrence of the external cause
CPT/HCPCS: 36415; 71045-TC; 80048-TC; 80053-TC; 80202-TC; 81000-TC; 82248-TC; 82728-TC; 82746; 83540-TC; 83605-TC; 83735-TC; 84100-TC; 84443-TC; 84703-TC; 85025-TC; 85396; 86850-TC; 86921-TC; 87040-TC; 87081-TC; 87086-TC; A4216; A4606; J0692; J1100; J1200; J2185; J2270; J2405; J2930; J3370; J3475; J3490; J7050; J7060; P9016-BL; P9034-BL; Z7610